=== PATIENT | female | born 1950 | race Caucasian/White ===

== ENCOUNTER → 2016-12-25 | Day surgery (SDC) | payer MEDICARE ==
[~2016-12-25] VITALS: Ht 160 cm; Wt 56.9 kg
[~2016-12-25] MED LIST: *morphine SULFATE 8 MG/ML PERIprocedure ONLY ONE; ACETAMINOPHEN 1000 MG/100 ML 100 ML IV ONE; ALPR0.25 PO; ASPI81TA11 PO; CHLORHEXIDINE GLUCONATE 2 % 1 PACK (2 CLOTHS) TOPICAL PRN; CLOP75TA PO; DEXAMETHASONE SOD PHOS 4 MG/ML VIAL IV ONE; DO NOT ADM ANY ANTICOAGULANT DRUGS PRN; ESTROGENS CONJUGATED VAG CREA 15 APPL/30 GM TUBE ONE; HYDROmorphone HCL PF 2 MG/ML VIAL ONE; INSULIN HUMAN REGULAR 1,000 UNITS/10 ML VIAL SQ PRN; LACTATED RINGER'S 1000 ML INJ 1,000 ML IV ONE; LACTATED RINGER'S 1000 ML IV PRN; LIDOCAINE HCL 1% PF 5 ML AMPULE OTHER ONE; METOPROLOL TARTRATE 25 MG TAB PO PRN; OCUVTAB PO; ONDANSETRON HCL 4 MG/2 ML VIAL IV PUSH ONE; POVIDONE IODINE 5% (ANTISEPSIS KIT) 4 APPLICATIONS EACH NARE PRN; PROPOFOL 200 MG/20 ML AMP IV ONE; SODIUM CHLORID 0.9% 500 ML IV PRN; ePHEDrine/NS 25 MG/5 ML SYR IV ONE; oxyCODONE/ACETAMINOPHEN 5 MG/325 MG TAB PO PRN
[2016-12-25] MEDS: ceFAZolin 1,000 MG/NS 100 ML IV SCH ×8 (06:33→07:27)
--- NOTE | 2016-12-25 07:41 | PD.OP ---
Operative Report Date of Surgery: Dec 25, 2016 Preoperative Diagnosis: (1) Abnormal findings on diagnostic imaging of other specified body structures (2) Stricture and stenosis of cervix uteri (3) Postmenopausal atrophic vaginitis Postoperative Diagnosis: (1) Abnormal findings on diagnostic imaging of other specified body structures (2) Stricture and stenosis of cervix uteri (3) Postmenopausal atrophic vaginitis Procedure: 1. dilatation of stenotic cervix 2. hysteroscopy with Myosure 3. D&C Anesthesia: FRANCOIS Surgeon: Che Bustillo Retail Performance Coach(s): OR staff Operation and Findings: IVF: 1100 ml LR + IV antibiotics given prior to surgery EBL: < 10 ml UO: 150 ml Findings: VERY stenotic cervix, fibrous uterine cavity vs. track made in cervix Specimens: endometrial + endocervical tissue Complications: none Condition: stable Disposition: PACU Descriptions of the procedure: I discussed the risks, benefits and alternatives of the procedure with the patient and her family. Informed consent was obtained after questions were answered. She was taken to the operating room with her IV running. She was placed in the supine position and was given general anesthesia without difficulties or complications. She was then placed in the dorsal lithotomy position and was prepped and draped in the usual sterile fashion. A bivalve speculum was placed inside the patient's vagina. The anterior aspect of the cervix was grasped with a single tooth tenaculum for manipulation. The cervix was found to be VERY stenotic. Multiple careful attempts were done until finally the cervix was dilated. A Myosure hysteroscope was carefully introduced inside the patient's uterus. Fibrous bands were encountered so there was a question as to whether the uterine cavity has adhesions or a track was made in the cervix matrix since dilation of the cervix was so difficult. Since the endocervix was visualized very well, adhesions in the cavity appear to be the case. A gentle D&C was carefully done in the lower uterus and endocervix. All tissues were sent to pathology. All the instruments were removed from the uterine cavity. The cervix was noted to be hemostatic after two figure of eight stitches were done with 0-Chromic. All the instruments were removed from the patient's vagina. The patient tolerated the procedure well. She was successfully awaken from general anesthesia and was transferred to PACU in stable condition. Note: I was not able to discuss surgical findings and surgical procedure with the patient's family because no one was available for discussion. Che Bustillo MD Dec 25, 2016 07:41
[2016-12-25 09:45] LABS: BILIRUBIN, URINE NEG (NEG); BLOOD, URINE NEG (NEG); GLUCOSE,URINE NEG (NEG); KETONE, URINE NEG (NEG); NITRITE,URINE NEG (NEG); SQUAMOUS EPITHELIAL CELL URINE <1 /hpf (0-5); URINE COLOR LIGHT-YELLOW (YELLW/STRAW); URINE LEUKOCYTE ESTERASE NEG (NEG)
[2016-12-25 10:00] VITALS: BP 102/64; PULSE 60; RESP 20; TEMP 96.8; O2SAT 97
--- NOTE | 2016-12-25 14:50 | EKG ---
Date Performed: 12/25/2016 Time Performed: 06:24:30 PTAGE: 66 years EKG: SINUS BRADYCARDIA BORDERLINE ECG NO PREVIOUS TRACING DOCTOR: Smita Veloz Interpretating Date/Time 12/25/2016 14:45:46
--- NOTE | 2016-12-25 14:50 | EKG ---
Date Performed: 12/25/2016 Time Performed: 06:24:30 PTAGE: 66 years EKG: SINUS BRADYCARDIA BORDERLINE ECG NO PREVIOUS TRACING DOCTOR: Smita Veloz Interpretating Date/Time 12/25/2016 14:45:46
--- NOTE | 2016-12-25 14:50 | EKG ---
Date Performed: 12/25/2016 Time Performed: 06:24:30 PTAGE: 66 years EKG: SINUS BRADYCARDIA BORDERLINE ECG NO PREVIOUS TRACING DOCTOR: Smita Veloz Interpretating Date/Time 12/25/2016 14:45:46
== END | disposition home or self-care (01) ==
LOC: HSDC 05:51
PROVIDERS: ATTEND Obstetrics & Gynecology
DX: N88.2 Stricture and stenosis of cervix uteri (principal); N95.2 Postmenopausal atrophic vaginitis; R93.8 Abnormal findings on diagnostic imaging of other specified body structures; R00.1 Bradycardia, unspecified; E78.00 Pure hypercholesterolemia, unspecified; F41.9 Anxiety disorder, unspecified; F17.200 Nicotine dependence, unspecified, uncomplicated
CPT/HCPCS: 00952; 58558; 81001; 88305; 93005; 94150; J0131; J0690; J1100; J1170; J2270; J2405; J7120

== ENCOUNTER → 2017-05-22 | Day surgery (SDC) | payer MEDICARE ==
[~2017-05-22] VITALS: Ht 162.6 cm; Wt 54.7 kg
[~2017-05-22] MED LIST changes: -ASPI81TA11 PO; +ASPI81TA23 PO; +BUPIVACAINE HCL PF 0.5% 30 ML VIAL ONE; +CEFAZOLIN INJ 2,000 MG in SODIUM CHLORIDE 0.9% INJ 100 ML IV SCH; -ESTROGENS CONJUGATED VAG CREA 15 APPL/30 GM TUBE ONE; +GLYCOPYRROLATE 1 MG/5 ML SYRINGE IV PUSH ONE; -HYDROmorphone HCL PF 2 MG/ML VIAL ONE; -INSULIN HUMAN REGULAR 1,000 UNITS/10 ML VIAL SQ PRN; +LABETALOL HCL 100 MG/20 ML VIAL IV ONE; -LIDOCAINE HCL 1% PF 5 ML AMPULE OTHER ONE; +LIDOCAINE HCL 1% PF 5 ML SYRINGE OTHER ONE; +METHYLENE BLUE 10 MG/ML VIAL ONE; +NEOSTIGMINE 5 MG/5 ML SYRINGE IV PUSH ONE; +ONDANSETRON HCL 4 MG/2 ML VIAL IV ONE; -ONDANSETRON HCL 4 MG/2 ML VIAL IV PUSH ONE; +PHENYLEPH/NS 1000 MCG/10 ML SYR IV ONE; +ROCURONIUM INJ 50 MG/5 ML SYRINGE IV PUSH ONE; +SODIUM CHLORIDE 0.9% 20 ML VIAL ONE; +SUGAMMADEX SODIUM 200 MG/2 ML VIAL IV PUSH ONE; +VASOPRESSIN 20 UNITS/ML VIAL ONE; -ePHEDrine/NS 25 MG/5 ML SYR IV ONE; +ePHEDrine/NS 25 MG/5 ML SYRINGE IV ONE; +fentaNYL CITRATE 250 MCG/5 ML AMP ONE
--- NOTE | 2017-05-22 07:22 | PD.OP ---
Operative Report Date of Surgery: May 22, 2017 Preoperative Diagnosis: (1) Abnormal findings on diagnostic imaging of other specified body structures (2) Stricture and stenosis of cervix uteri (3) Pelvic and perineal pain Postoperative Diagnosis: (1) Abnormal findings on diagnostic imaging of other specified body structures (2) Stricture and stenosis of cervix uteri (3) Pelvic and perineal pain Procedure: 1. LSCH 2. BSO Anesthesia: BGA Surgeon: Che Bustillo Pull Up Hand(s): OR Staff Operation and Findings: IVF: 1200 ml LR + IV antibiotics EBL: 50 ml UO: 100 ml Findings: 1. multiple thick, fibrous abdominal adhesions involving bowel and abdominal paiz 2. normal size uterus 3. normal tubes and ovaries Specimens: uterus, tubes, ovaries Complications: none Condition: stable Disposition: PACU Descriptions of the procedure: I discussed the risks, benefits and alternatives of the procedure with the patient. Informed consent was obtained after questions were answered. She was then taken to the operating room with her IV running. She was placed in the supine position and was given general anesthesia without difficulties or complications. She was then placed in the dorsal lithotomy position and was prepped and draped in the usual sterile fashion. Attention was first turned to the patient's genital area. A bivalved speculum was introduced inside the patient's vagina. The anterior aspect of the cervix was grasped with a single tooth tenaculum for manipulation. The cervix was very stenotic so a uterine manipulator was not placed due to inability to dilate the cervix. Instead, the anterior aspect of the cervix was grasped with a clamp to aid in uterine manipulation. The rest of the instruments were removed from the patient's vagina. A sterile blue towel was used to cover the perineum. The surgeon changed gloves and attention was then turned to the patient's abdomen. A vertical umbilical incision was made with the scalpel. A 5 mm trocar was introduced inside the patient's abdomen under direct visualization. A pneumo -peritoneum was created with CO2 gas. Two 5 mm trocars and one 10 mm trocar were introduced inside the patient's abdomen under direct visualization in the lower right, and mid abdomen. A survey of the patient's abdomen revealed multiple, thick, fibrous adhesions involving loops of bowel and abdominal paiz. A survey of the patient's pelvis revealed the findings noted above. The round ligaments and the infundibulopelvic ligaments were carefully and serially grasped, electrocauterized and cut with the Harmonic scalpel. Excellent hemostasis was noted. The tissues along the uterus on both sides were serially grasped, electrocauterized and transected with the Harmonic scalpel. The ureters were noted to be away from the surgical site. The uterine vessels were skeletonized, electrocauterized and transected with the Harmonic scalpel. Good hemostasis was noted. Next, the bladder flap was created and the bladder was dissected off the lower uterine segment. Excellent hemostasis was noted. The clamped was removed from the anterior cervix. Maame loop was used to cut and electrocauterize the cervico-uterine junction. Good hemostasis was noted. The Harmonic scalpel was used to electrocauterized the endocervix. The morcellator was introduced inside the abdomen under direct visualization and was used to cut the uterus and adnexa. Tissue was carefully removed and sent to Pathology. The surgical sites were noted to be hemostatic. Copious irrigation was done. Care was taken to ensure the removal of all small pieces of tissue which were left in the abdomen and pelvis after morcellation. The ureters were identified again and were found to be away from the surgical sites. There was no evidence of injury or blockage of the ureters or bladder. All of the instruments were removed from the patient's abdomen. The ports were also removed under direct visualization. Excellent hemostasis was noted. The CO2 gas was carefully expressed out of the patient's abdomen. The 10 mm fascial incision was reapproximated with a figure eight stitch of 0-Vicryl. The skin incisions were injected with 0.5 % Marcaine and were reapproximated with subcutaneous stitches of 4-0 Vicryl. Mastisol and steri strips were placed over the incisions. The patient tolerated the procedure well. She was successfully extubated and transferred to PACU in stable condition. Note: I discussed surgical procedures and surgical findings with patient's friend. Her questions were answered. She verbalized understanding. Che Bustillo MD May 22, 2017 07:22
[2017-05-22 17:33] VITALS: BP 143/78; PULSE 78; RESP 16; TEMP 97.2; O2SAT 98
== END | disposition home or self-care (01) ==
LOC: HSDC 12:47
PROVIDERS: ATTEND Obstetrics & Gynecology
DX: N88.2 Stricture and stenosis of cervix uteri (principal); R10.2 Pelvic and perineal pain; R93.8 Abnormal findings on diagnostic imaging of other specified body structures
CPT/HCPCS: 00840; 58542; 86850; 86900; 86901; 88307; J0131; J0690; J1100; J2270; J2370; J2405; J2710; J3010; J7120

== ENCOUNTER 2017-05-24 11:48 | Emergency (ER) | payer MEDICARE ==
[~2017-05-24] VITALS: Ht 162.6 cm; Wt 58.0 kg
[~2017-05-24 11:48] MED LIST changes: -*morphine SULFATE 8 MG/ML PERIprocedure ONLY ONE; -ACETAMINOPHEN 1000 MG/100 ML 100 ML IV ONE; -BUPIVACAINE HCL PF 0.5% 30 ML VIAL ONE; -CEFAZOLIN INJ 2,000 MG in SODIUM CHLORIDE 0.9% INJ 100 ML IV SCH; -CHLORHEXIDINE GLUCONATE 2 % 1 PACK (2 CLOTHS) TOPICAL PRN; -DEXAMETHASONE SOD PHOS 4 MG/ML VIAL IV ONE; -DO NOT ADM ANY ANTICOAGULANT DRUGS PRN; -GLYCOPYRROLATE 1 MG/5 ML SYRINGE IV PUSH ONE; -LABETALOL HCL 100 MG/20 ML VIAL IV ONE; -LACTATED RINGER'S 1000 ML INJ 1,000 ML IV ONE; -LACTATED RINGER'S 1000 ML IV PRN; -LIDOCAINE HCL 1% PF 5 ML SYRINGE OTHER ONE; -METHYLENE BLUE 10 MG/ML VIAL ONE; -METOPROLOL TARTRATE 25 MG TAB PO PRN; -NEOSTIGMINE 5 MG/5 ML SYRINGE IV PUSH ONE; -ONDANSETRON HCL 4 MG/2 ML VIAL IV ONE; -PHENYLEPH/NS 1000 MCG/10 ML SYR IV ONE; -POVIDONE IODINE 5% (ANTISEPSIS KIT) 4 APPLICATIONS EACH NARE PRN; -PROPOFOL 200 MG/20 ML AMP IV ONE; -ROCURONIUM INJ 50 MG/5 ML SYRINGE IV PUSH ONE; -SODIUM CHLORID 0.9% 500 ML IV PRN; -SODIUM CHLORIDE 0.9% 20 ML VIAL ONE; -SUGAMMADEX SODIUM 200 MG/2 ML VIAL IV PUSH ONE; -VASOPRESSIN 20 UNITS/ML VIAL ONE; -ePHEDrine/NS 25 MG/5 ML SYRINGE IV ONE; -fentaNYL CITRATE 250 MCG/5 ML AMP ONE; -oxyCODONE/ACETAMINOPHEN 5 MG/325 MG TAB PO PRN
[2017-05-24 11:52] VITALS: BP 186/84; PULSE 104; RESP 20; TEMP 98.2; O2SAT 96
[2017-05-24 12:30] VITALS: BP 186/93; PULSE 105
[2017-05-24 12:53] LABS: BACTERIA, URINE OCC /hpf; BILIRUBIN, URINE NEG (NEG); BLOOD, URINE TRACE (NEG); GLUCOSE,URINE NEG (NEG); KETONE, URINE NEG (NEG); MUCUS URINE FEW /lpf (OCC); NITRITE,URINE NEG (NEG); SQUAMOUS EPITHELIAL CELL URINE 4 /hpf (0-5); URINE COLOR LIGHT-YELLOW (YELLW/STRAW); URINE LEUKOCYTE ESTERASE SMALL (NEG)
--- NOTE | 2017-05-24 12:53 | PD ---
HPI Chief Complaint: Complaint Time Seen by Provider: 12:38 Travel History International Travel<30 days: No Contact w/Intl Traveler<30days: No Traveled to known affect area: No History of Present Illness HPI 66-year-old female presents to the ED for evaluation of approximately 2 days' history of low urine output. Patient underwent laparoscopic hysterectomy with Dr. Bustillo on 05/21/17. She states that she had a House that was removed in the postanesthesia care unit. She states that she is only been able to make small volumes of urine since then. She complains of constant 8/10 lower abdominal pain. No alleviating or exacerbating factors reported. She endorses scant vaginal bleeding. She denies fever, chills, nausea, vomiting, back pain. She denies history of urinary retention. She called the surgeon's office and was instructed to report to the ED. PFSH Past Medical History Cancer: No Cardiovascular Problems: Yes (stents in both legs for pvd,) Diabetes: No Endocrine: No Genitourinary: No Hepatitis: No Hiatal Hernia: No Immune Disorder: No Musculoskeletal: Yes (arthritis in hands, r hand worse) Neurologic: No Psychiatric: No Reproductive: No Respiratory: No Thyroid Disease: No ?: Not Past Surgical History Abdominal Surgery: Yes (BILATERAL VASCULAR STENTS IN LEGS) AICD: No Body Medical Devices: 2 stents in groin, breast implants Cardiac Surgery: Yes (2 groin stents for pvd) Ear Surgery: No Endocrine Surgery: No Eye Surgery: No Genitourinary Surgery: No Gynecologic Surgery: Yes (d+c) Joint Replacement: No Oral Surgery: No Pacemaker: No Thoracic Surgery: No Social History Tobacco Use: No Substance Use: No Allergies-Medications (Allergen,Severity, Reaction): Coded Allergies: No Known Allergies (Unverified Allergy, Unknown, 05/24/17) Reported Meds & Prescriptions Reported Meds & Active Scripts Active Reported Alprazolam 0.25 Mg Tab 0.25 Mg PO WEEKLY PRN Ocuvite (Multiple Vitamins W/ Minerals) 1 Tab 1 Tab PO DAILY Clopidogrel (Clopidogrel Bisulfate) 75 Mg Tab 75 Mg PO DAILY Aspirin EC (Aspirin) 81 Mg Tabdr 81 Mg PO DAILY Review of Systems Except as stated in HPI: all other systems reviewed are Neg Physical Exam Narrative GENERAL: Well-nourished, well-developed white female in no acute distress. SKIN: Focused skin assessment warm/dry. 4 laparoscopic surgical ports, well healing without signs of infection. HEAD: Normocephalic. EYES: No scleral icterus. No injection or drainage. NECK: Supple, trachea midline. No JVD or lymphadenopathy. CARDIOVASCULAR: Regular rate and rhythm without murmurs, gallops, or rubs. RESPIRATORY: Breath sounds equal bilaterally. No accessory muscle use. GASTROINTESTINAL: Abdomen tender to palpation in the lower quadrants with palpable distended urinary bladder. MUSCULOSKELETAL: No cyanosis, or edema. BACK: Nontender without obvious deformity. No CVA tenderness. Data Data Last Documented VS Vital Signs Date Time Temp Pulse Resp B/P (MAP) Pulse Ox O2 Delivery O2 Flow Rate FiO2 05/24/17 15:02 05/24/17 12:30 105 05/24/17 11:52 98.2 20 96 Orders Orders Urinalysis - C+S If Indicated (05/24/17 11:55) Bladder Scan PRN (05/24/17 12:36) Urinary Catheter Insert/Apply (05/24/17 12:42) Basic Metabolic Panel (Bmp) (05/24/17 13:01) Bag, Leg 32oz Sterile Large Ea (05/24/17 13:59) Ed Discharge Order (05/24/17 13:59) Labs Laboratory Tests Test 05/24/17 12:06 05/24/17 12:10 Urine Color LIGHT-YELLOW Urine Turbidity CLEAR Urine pH 5.0 Urine Specific [place] 1.004 Urine Protein NEG mg/dL Urine Glucose (UA) NEG mg/dL Urine Ketones NEG mg/dL Urine Occult Blood TRACE Urine Nitrite NEG Urine Bilirubin NEG Urine Urobilinogen LESS THAN 2.0 MG/DL Urine Leukocyte Esterase SMALL Urine RBC 1 /hpf Urine WBC 5 /hpf Urine Squamous Epithelial Cells 4 /hpf Urine Bacteria OCC /hpf Urine Mucus FEW /lpf Microscopic Urinalysis Comment CULT NOT INDICATED Blood Urea Nitrogen 6 MG/DL Creatinine 0.85 MG/DL Random Glucose 97 MG/DL Calcium Level 9.5 MG/DL Sodium Level 142 MEQ/L Potassium Level 3.8 MEQ/L Chloride Level 104 MEQ/L Carbon Dioxide Level 29.4 MEQ/L Anion Gap 9 MEQ/L Estimat Glomerular Filtration Rate 67 ML/MIN [facility] Medical Decision Making Medical Screen Exam Complete: Yes Emergency Medical Condition: Yes Differential Diagnosis Urinary retention versus postoperative urinary retention versus AKA versus metabolic derangement versus other Narrative Course 66-year-old female presents to the ED for evaluation of approximately 2 days' history of low urine output. Patient underwent laparoscopic hysterectomy with Dr. Bustillo on 05/21/17. She states that she had a House that was removed in the postanesthesia care unit. She states that she is only been able to make small volumes of urine since then. She complains of constant 8/10 lower abdominal pain. No alleviating or exacerbating factors reported. She endorses scant vaginal bleeding. She denies fever, chills, nausea, vomiting, back pain. She denies history of urinary retention. She called the surgeon's office and was instructed to report to the ED. heart rate 105, BP 186/93 on arrival. On exam the urinary bladder is distended and the abdomen is tender. House catheter was inserted. 1400 of pale yellow urine was emptied into the collection bag. On reexam the abdomen is soft and nontender. Patient reports improvement of her symptoms. BP and HR within normal limits at bedside monitor. No culture indicated of the UA. BUN 6, creatinine 0.85. A leg bag was placed. Patient was given detailed House care instructions. She is instructed to follow-up with the on-call urologist, Dr. tyler tomorrow morning for further evaluation. She is instructed to follow-up with Dr. Bustillo as planned. She is agreeable to the care plan. She is stable and discharged home. Diagnosis Primary Impression: Postoperative urinary retention Referrals: Leonardo Mercedes MD Patient Instructions: House Catheter Placement and Care (ED), General Instructions Additional Instructions: Rest, hydrate. Follow postoperative instructions provided at earlier discharge. Do not remove the House until evaluated by the urologist. Call Dr. Mercedes' office tomorrow morning for an appointment later this week. Follow-up with the surgeon, Dr. Bustillo, as planned. Return to the ED for worsening symptoms or any urgent or emergent medical condition. Disposition: 01 DISCHARGE HOME Condition: Stable Kamilah Bernal May 24, 2017 12:53
[2017-05-24 13:46] LABS: BICARBONATE 29.4 MEQ/L (21.0-32.0); CALCIUM 9.5 MG/DL (8.5-10.1); CREATININE 0.85 MG/DL (0.50-1.00)
== END 2017-05-24 15:52 | disposition home or self-care (01) ==
LOC: NEPE 11:48
DX: R33.8 Other retention of urine (principal); Z98.890 Other specified postprocedural states; M19.042 Primary osteoarthritis, left hand; M19.041 Primary osteoarthritis, right hand; Z90.710 Acquired absence of both cervix and uterus; Z79.899 Other long term (current) drug therapy
CPT/HCPCS: 51702; 80048; 81001